=== PATIENT | female | born 1995 ===

== ENCOUNTER 2023-01-06 22:12 | Emergency (ER) | payer OTHER ==
[~2023-01-06] VITALS: Ht 170.2 cm; Wt 111.4 kg
[2023-01-06] MEDS ORDERED: EMTRTAB7 PO (22:43)
[2023-01-06] MEDS ORDERED: RALT400T PO (22:43)
[2023-01-07 00:30] VITALS: BP 132/89
== END 2023-01-07 00:38 | disposition home or self-care (01) ==
LOC: ER 22:12
DX: F41.9 Anxiety disorder, unspecified (principal); F32.9 Major depressive disorder, single episode, unspecified; Z77.21 Contact with and (suspected) exposure to potentially hazardous body fluids; Z88.6 Allergy status to analgesic agent

== ENCOUNTER 2023-01-14 08:45 | Emergency (ER) | payer OTHER ==
[~2023-01-14] VITALS: Ht 170.2 cm; Wt 94.4 kg
[~2023-01-14 08:45] MED LIST: EMTRTAB7 PO; RALT400T PO
[2023-01-14 10:03] LABS: Hepatitis B Surface Antibody Negative (Negative)
[2023-01-14 10:19] VITALS: BP 124/77
== END 2023-01-14 18:45 | disposition home or self-care (01) ==
LOC: ER 08:45
DX: Z77.21 Contact with and (suspected) exposure to potentially hazardous body fluids (principal); Z88.6 Allergy status to analgesic agent; Z20.5 Contact with and (suspected) exposure to viral hepatitis
CPT/HCPCS: 36415; 86703; 86706; 86803; 87340